=== PATIENT | male | born 1980 | race Caucasian/White ===

== ENCOUNTER 2022-04-27 19:28 | Emergency (ER) | payer OTHER ==
[~2022-04-27] VITALS: Ht 165.1 cm; Wt 70.3 kg
[2022-04-27 19:58] VITALS: BP 136/91
--- NOTE | 2022-04-27 19:58 | NUR ---
Headache, chills, nausea and body aches and sore throat and chest pain upon sneezing Pt claimed to have diffulty of swallowing.
[2022-04-27] MEDS ORDERED: ACETAMINOPHEN 325 MG TAB PO ONE ×2 (20:15)
[2022-04-27] MEDS ORDERED: NACL 0.9% 1,000 ML IV SCH (20:15)
[2022-04-27 20:47] LABS: BASOPHILS % (AUTO) 0.2 % (0.0-2.0); EOSINOPHILS # (AUTO) 0.1 K/uL (0-0.4); HEMOGLOBIN 14.8 g/dL (12.0-18.0); LYMPHOCYTES % (AUTO) 8.5 % (20.5-51.1); MEAN CORPUSCULAR HEMOGLOBIN 31 pg (27-31); MEAN CORPUSCULAR HGB CONC 34 g/dL (33-37); MEAN CORPUSCULAR VOLUME 90.7 fL (80-94); MONOCYTES # (AUTO) 1.1 K/uL (0.8-1.0); MONOCYTES % (AUTO) 9.5 % (1.7-9.3); NEUTROPHILS # (AUTO) 9.7 K/uL (1.8-7.7); NEUTROPHILS % (AUTO) 80.8 % (42.2-75.2); PLATELET COUNT (AUTO) 278 K/uL (140-450); RED BLOOD CELL COUNT(AUTO) 4.85 MIL/uL (4.20-6.10); RED CELL DISTRIBUTION WIDTH 12.8 % (11.6-13.7); WHITE BLOOD COUNT (AUTO) 11.9 K/uL (4.8-10.8)
[2022-04-27 21:04] LABS: ALBUMIN 3.8 g/dL (3.4-5.0); ANION GAP 12.9 (8-16); CARBON DIOXIDE 29.9 mmol/L (21-32); CREATININE 1.1 mg/dL (0.6-1.3); POTASSIUM 3.8 mmol/L (3.5-5.1); TOTAL BILIRUBIN 0.3 mg/dL (0.0-1.0)
[2022-04-27 21:11] LABS: LIPASE 165 U/L (73-393)
[2022-04-27] MEDS ORDERED: ACET-10509 PO (22:12)
[2022-04-27] MEDS ORDERED: ALBU0.0912 IH (22:12)
[2022-04-27] MEDS ORDERED: BENZ200C4 PO (22:12)
[2022-04-27] MEDS ORDERED: IBUP-2213 PO (22:12)
--- NOTE | 2022-04-27 23:10 | NUR ---
recchecked the vital sign, it was 99.8
[2022-04-28 02:35] VITALS: BP 136/91
--- NOTE | 2022-04-28 02:38 | NUR ---
Patient discharged with v/s stable. Written and verbal after care instructions given and explained. Patient verbalized understanding. Ambulatory with steady gait. All questions addressed prior to discharge. Advised to follow up with PMD. pt left with his belongings.
== END 2022-04-28 02:38 | disposition home or self-care (01) ==
LOC: MED 19:28
DX: B34.9 Viral infection, unspecified (principal); R07.9 Chest pain, unspecified; Z20.822 Contact with and (suspected) exposure to COVID-19; Z79.899 Other long term (current) drug therapy; Z79.1 Long term (current) use of non-steroidal anti-inflammatories (NSAID)
CPT/HCPCS: 36415; 71045; 80053; 82550; 83605; 83690; 83880; 84484; 85025; 87040; 93005; 99285